=== PATIENT | female | born 1940 | race Caucasian/White ===

== ENCOUNTER 2017-03-01 14:50 | Emergency (ER) | payer MEDICARE, MEDICAID ==
[~2017-03-01] VITALS: Ht 165.1 cm; Wt 122.0 kg
[~2017-03-01 14:50] MED LIST: AMIN1TAB PO; CMBV14.7IN INH; GLUC-133 PO; GUAI400T51 PO; LEVO250C PO; LUTE10TA PO; MELO15TA14 PO; MILK1CAP3 PO; MULT-946 PO; OMEG-38 PO; POTA99TA15 PO; ST.1POWD PO; TAUR1000 PO; TRAM100T23 PO; UBID400C2 PO; [UNRECOGNIZED DRUG - CODE] PO
[2017-03-01 14:58] VITALS: BP 135/56; PULSE 76; RESP 17; O2SAT 98
--- NOTE | 2017-03-01 15:01 | ED.REPORT ---
HPI-General Illness Date of Service Mar 01, 2017 ED Provider: Bong Cole MD Pt is a 76 y/o female w/ a hx of COPD, asthma, cataracts, presenting to the ED via EMS c/o bilateral eye irritation onset yesterday. Yesterday the patient went to a health club and worked out and she subsequently noticed that her eyes felt dry and her vision was slightly intermittently blurry. She looked in the mirror and noticed her eyes appeared inflamed and red. She has also been experiencing increased tearing bilaterally. She washed her eyes with some OTC tear solution without relief. The patient then went to see an director digital marketing ( Dr. Megan Leon) who prescribed ointment containing sulfa and prednisone. The patient says she is deathly allergic to sulfites. She states this solution worsened her problem. She woke up today experiencing increased eye redness and she washed her eyes using an old bottle of boric acid eye wash solution which helped with some of the redness but her vision remains intermittently blurred. She also says that her voice is gone and her asthma inhaler is not working as well as it usually does. She is also complaining of shortness of breath and wheezing. Nursing Notes Stated Complaint: ALLERGIC REACTION Chief Complaint: Allergic Reaction Nursing Notes Reviewed: Yes Allergies: Coded Allergies: Beta-Blockers (Beta-Adrenergic Bloc (Verified Allergy, Severe, CORGARD, SEVERE ASTHMA, 09/29/11) Dust (Verified Allergy, Severe, SYNCOPE, 09/20/11) Penicillins (Verified Allergy, Severe, SYNCOPE, 09/20/11) mold extracts (Verified Allergy, Severe, SYNCOPE, 09/20/11) pollen extracts (Verified Allergy, Severe, SYNCOPE, 09/20/11) sulfite (Verified Allergy, Severe, ASTHMA, 09/29/11) tomato (Verified Allergy, Unknown, UNKNOWN, 09/20/11) tree nut (Verified Allergy, Unknown, WALNUTS AND PECANS, 03/01/17) Uncoded Allergies: VILLANUEVA PEPPERS (Allergy, Severe, SYNCOPE, 09/20/11) CIGARETTE SMOKE (Allergy, Severe, SYNCOPE, 09/20/11) MILDEW (Allergy, Severe, SYNCOPE, 09/20/11) PERFUME (Allergy, Severe, SYNCOPE, 09/20/11) Scheduled Amino Acids/Mv,Fe,Other Min-Expunged Drug, Do (Ocuvite Extra-Expunged Drug, Do Not Renew!) 1 Tab Tablet 2 TAB PO BID Cetirizine-Expunged Drug, Do Not Renew! (Allergy-Expunged Drug, Do Not Renew!) 10 Mg Tablet 10 MG PO HS Glucosa Avendaño 2KCL/Chondroitin Avendaño (Gnp Glucosamine Chondroitin Tb) 1 Each Tablet 2 EACH PO BID Guaifenesin (Mucus Relief Chest) 400 Mg Tablet 600 MG PO PRN Levocarnitine-Expunged Drug, Do Not Renew! (L-Hlylqylwc-Mvdjechz Drug, Do Not Renew!) 250 Mg Capsule 500 MG PO BID Lutein-Expunged Drug, Do Not Renew! (Lutein-Expunged Drug, Do Not Renew!) 10 Mg Tablet 20 MG PO BID MULTIVIT, IRON, MIN NO. 8, FA-Expunged Drug, (IZPUOIMVWPN-Y-Snbggvfb Drug, Do Not Renew!) 1 Each Tablet 3 EACH PO BID Meloxicam-Expunged Drug, Do Not Renew! (Mobic-Expunged Drug, Do Not Renew!) 15 Mg Tablet 15 MG PO DAILY INSTRUCTED TO STOP Milk Thistle Seed Xt/Silymarin (Milk Thistle 140 Mg Capsule) 1 Each Capsule 600 MG PO BID OMEGA-3/DHA/EPA/FISH OIL-Expunged Drug, Do No (FISH OIL 1,000 MG-Expunged Drug, Do Not Renew) 1 Each Capsule 1 EACH PO BID INSTRUCTED TO STOP POTASSIUM GLUC-Expunged Drug, Do Not Renew! (POTASSIUM-Expunged Drug, Do Not Renew!) 99 Mg Tablet 99 MG PO BID Isaiah's Wort ([place]'s Wort) 1 Gm Powder 300 MG PO BID INSTRUCTED TO STOP TRAMADOL -Expunged Drug, Do Not Renew! (TRAMADOL-Expunged Drug, Do Not Renew!) 100 Mg Tbmp.24hr 50 MG PO PRN EVERY 4-6 HOURS Taurine (Christian Taurine) 1,000 Mg Capsule 500-1,000 MG PO BID Ubidecarenone (Coenzyme Q10) 400 Mg Capsule 30 MG PO BID Scheduled PRN Albut/Ipratropium-Expunged Drug, Do Not Renew (Combivent-Expunged Drug, Do Not Renew!) 1 Puff Inhaler 2 PUFFS INH PRN PRN PRN General Time Seen by MD: 15:00 Chief Complaint Other (Eye irritation) Hx Obtained From: Patient, EMS Arrived By: Ambulance Sudden in Onset?: No Onset Occurred: Yesterday Symptom Duration: Since onset Location: : Eye left: Eye right Quality: Burning Severity: Current: Mild Severity: Maximum: Moderate Past Medical History Past Medical History Cataracts Hx PVCs COPD Asthma Osteoarthritis Hx severe allergic reactions, requiring intubation Past Surgical History Appendectomy Smoking History Unknown if Ever Smoker Social History Alcohol Use: "Social" Drug Use: Denies drug use Ambulatory Status Independent Review of Systems Full Review of Systems Constitutional: Denies: Chills, Fever Eyes: Reports: Blurred bilateral, Eye pain bilateral, Redness bilateral Respiratory: Reports: Shortness of breath Complete sys rev & neg: except as marked. Physical Exam Vital Signs Vital Signs Date Time Temp Pulse Resp B/P Pulse Ox O2 Delivery O2 Flow Rate FiO2 03/01/17 17:30 37.0 97 23 152/61 95 Room Air 03/01/17 16:55 37.0 97 23 152/61 99 Room Air 03/01/17 16:22 102 18 98 2 03/01/17 14:58 36.8 76 17 135/56 98 Room Air Initial VS: Reviewed, Vital signs normal Neck: Full range of motion Cardiovascular: Regular rate & rhythm, Heart sounds normal, Intact distal pulses Abdomen / GI: Soft, Non-tender Extremities: Vascular intact, Neuro intact, No swelling Skin: Warm, Dry, No cyanosis Neurologic: Alert, Oriented, Nonfocal General/Constitutional: Awake, Alert, No acute distress, Cooperative, Not toxic appearing Head / Eyes: Atraumatic, Normocephalic, PERRL (3mm), EOMI Mild bilateral conjunctival injection No FB present Wood's lamp exam reveals: No corneal abrasions or ulcerations No fluorescein uptake ENT: Atraumatic, Airway patent, Mucous membranes moist, Pharynx NL, No pooling of secretions, No trismus, No facial swelling Respiratory / Chest: Breath sounds = bilat, No respiratory distress, No rales, No rhonchi, No retractions, No stridor Scattered expiratory wheezing Occasional dry cough Psychiatric: Mood NL Abnormal Thinking / Perception: Positive: Insight abnormal, Perseveration, Tangential thinking Odd affect Interpretation & Diagnostics X-Ray Chest Interpretation Chest Xray Interpretation: IMPRESSION: No acute cardiopulmonary disease. Prominent lung volumes raise the question of chronic obstructive pulmonary disease. Dictated by: Prakash Sloan M.D. on 03/01/2017 at 16:05 Approved by: Prakash Sloan M.D. on 03/01/2017 at 16:07 View: Portable, AP & lat Interpretation / Wet Read by: Interpret - Radiologist Re-Eval/Medical Decision Med Decision/Clinical Course Pt is a 76 y/o female w/ a hx of COPD, asthma, cataracts, presenting to the ED via EMS c/o bilateral eye irritation onset yesterday. Yesterday the patient went to a health club and worked out and she subsequently noticed that her eyes felt dry and her vision was slightly intermittently blurry. She looked in the mirror and noticed her eyes appeared inflamed and red. She has also been experiencing increased tearing bilaterally. She washed her eyes with some OTC tear solution without relief. The patient then went to see an director digital marketing ( Dr. Megan Leon) who prescribed ointment containing sulfa and prednisone. The patient says she is deathly allergic to sulfites. She states this solution worsened her problem. She woke up today experiencing increased eye redness and she washed her eyes using an old bottle of boric acid eye wash solution which helped with some of the redness but her vision remains intermittently blurred. She also says that her voice is gone and her asthma inhaler is not working as well as it usually does. She is also complaining of shortness of breath and wheezing. Here in the emergency department the patient is afebrile with stable vital signs and examination as above. Common examination of her eyes reveals bilateral conjunctival injection consistent with conjunctivitis. Given that her eyes have been itching I suspect that it may be allergic in nature. Fluorescein examination of her eyes reveals no corneal abrasions. There are no foreign bodies present. Her visual acuity is grossly intact and it seems that her intermittent blurry vision is associated with increased tearing. The nature of her presentation is not suggestive of acute angle closure glaucoma, iritis or other immediately patient threatening process. She reports that she is allergic to the eye medication that she was previously given though I somewhat doubt this. I have prescribed her erythromycin ointment and after receiving this medication the emergency department she immediately stated that her eyes felt better. In regards to the patient's wheezing she is noted to use her albuterol inhaler without a spacer holding at about 3 inches from her mouth and sprain. Towards her mouth. I very much doubt that any of this medication is reaching her lungs. She is provided with a spacer and education on how to use her albuterol inhaler. She received a nebulizer treatment here in the emergency room. Chest x-ray revealed no acute cardiopulmonary process or focal consolidation suggestive of pneumonia. She reported improvement in her breathing after nebulizer treatment. I do not feel that she requires more aggressive intervention or systemic steroids at this time. She will follow up closely with her primary care doc and use her albuterol inhaler as needed. She is in no respiratory distress. She will follow-up with her eye doctor regarding her ongoing eye concerns. Prior to discharge follow-up and return precautions were reviewed in detail with the patient who verbalized understanding and agreement with the plan. The patient was discharged in stable condition. Time of Eval: 16:24 Re-Evaluation/Progress Note: She requested a more detailed eye exam. A griffin lamp exam was performed and was unremarkable. Informed pt of plan for discharge. Pt understands and agrees with plan for discharge. F/U instructions and RTER warnings given. All questions addressed. Counseled Regarding: Diagnosis, Lab results, Need for follow-up, When/why to return to ED Discharge & Departure Primary Impression: Bilateral conjunctivitis Conjunctivitis type: acute Acute conjunctivitis type: unspecified Qualified Code: H10.33 - Unspecified acute conjunctivitis, bilateral Additional Impressions: Wheezing Asthma exacerbation Anxiety Disposition: Home Discharge Condition All VS Reviewed: Yes Condition: Stable Patient Instructions: Conjunctivitis (ED) Additional Instructions: Thank you for seeking care at the emergency room. It is difficult for us to make definitive diagnoses in the ED but we believe that you are experiencing conjunctivitis which is likely viral. Our primary goal today in the Emergency Department was to evaluate you for any life-threatening conditions. Your evaluation was reassuring. The chest x-ray showed no sign of pneumonia. You will be discharged with a tube of erythromycin ointment. Use this as prescribed. You should follow-up with your primary doctor or director digital marketing in the next week. You should return to the Emergency Department immediately if you develop fevers , vomiting, worsening of your vision, worsening shortness of breath, or any other concerning signs or symptoms. Thank you for letting us partake in your care today. Referrals: Alcon Butler MD (PCP) Scribe Attestation Portions of this note were transcribed by Abdulaziz Doshi. I, Dr. Cole personally performed the history, physical exam and medical decision-making; I reviewed and confirmed the accuracy of the information in the transcribed note. copies to: Alcon Butler MD, Beck O MD Mar 01, 2017 15:01 ABDULAZIZ DOSHI Mar 01, 2017 15:06
[2017-03-01] MEDS ORDERED: Fluorescein 0.6 mg Ophthalmic Strip BOTH_EYES ONE (15:50)
[2017-03-01] MEDS ORDERED: Tetracaine 0.5% 4 mL Ophthalmic Solution BOTH_EYES ONE (15:50)
[2017-03-01] MEDS ORDERED: Albuterol-Ipratropium 3 mL Inhalation Solution NEB ONE (15:50)
--- NOTE | 2017-03-01 16:09 | DRSVH ---
PROCEDURE: X-RAY CHEST, TWO VIEWS ([id number]) INDICATIONS: 76 year-old female with cough. TECHNIQUE: 2 views of the chest were acquired. COMPARISON: [facility], CR, XR CHEST 2VW, 03/17/2015, 15:19. [facility], CR, CHEST 2VW, 05/06/2013, 16:51. [facility] [place], CR, CHEST 2VW, 09/12/2008, 12:51. FINDINGS: Surgical changes and devices: None. Lungs and pleura: No pleural effusions or pneumothorax. Lungs are clear. Lung volumes are prominen t. Mediastinum: Mediastinal contours are normal. Heart size is normal. There is aortic atherosclerosi s. Bones and chest wall: No suspicious bony abnormalities. There is thoracic spine disc degeneration. Soft tissues appear unremarkable. IMPRESSION: No acute cardiopulmonary disease. Prominent lung volumes raise the question of chronic ob structive pulmonary disease. Dictated by: Prakash Sloan M.D. on 03/01/2017 at 16:05 Approved by: Prakash Sloan M.D. on 03/01/2017 at 16:07
[2017-03-01 16:22] VITALS: PULSE 102; RESP 18; O2SAT 98
[2017-03-01] MEDS ORDERED: Erythromycin 0.5% 3.5 Gm Ophthalmic Ointment BOTH_EYES SCH ×2 (16:35→16:45)
[2017-03-01 16:55] VITALS: BP 152/61; PULSE 97; RESP 23; O2SAT 99
[2017-03-01 17:30] VITALS: BP 152/61; PULSE 97; RESP 23; O2SAT 95
== END 2017-03-01 17:40 | disposition home or self-care (01) ==
LOC: SED 14:50 → EDBD 14:50 → SED 17:40
DX: H10.33 Unspecified acute conjunctivitis, bilateral (principal); J45.901 Unspecified asthma with (acute) exacerbation; F41.9 Anxiety disorder, unspecified; Z90.89 Acquired absence of other organs; Z79.51 Long term (current) use of inhaled steroids; Z88.8 Allergy status to other drugs, medicaments and biological substances; Z88.2 Allergy status to sulfonamides; Z88.0 Allergy status to penicillin
CPT/HCPCS: 71020; 94664; 99284; J7620